=== PATIENT | female | born 1980 | race Asian ===

== ENCOUNTER 2023-12-16 20:18 | Emergency (ER) | payer SELFPAY ==
[~2023-12-16] VITALS: Ht 167.6 cm; Wt 77.0 kg
[2023-12-16 20:44] VITALS: O2SAT 99
[2023-12-16] MEDS: HYDROCODONE/ACETAMINOPHEN 10/325MG TABLET PO ONE (21:55)
[2023-12-16] MEDS: KETOROLAC 60MG/2ML VIAL IM ONE (22:24)
[2023-12-16] MEDS: KETOROLAC 30MG/ML VIAL IV ONE (22:44)
[2023-12-16] MEDS ORDERED: LIDOCAINE HCL 1% 20ML VIAL (Pyxis) INJ INFIL ONE (22:45)
[2023-12-16] MEDS: HYDROMORPHONE HCL/PF 2MG/ML CPJ IV ONE (23:19)
[2023-12-16] MEDS: LIDOCAINE HCL 1% 20ML VIAL (Pyxis) INJ INFIL NR (23:51)
[2023-12-17] MEDS ORDERED: IBUP-2029 MT (00:12)
[2023-12-17] MEDS: IBUPROFEN 600MG TABLET PO ONE (00:47)
[2023-12-17 00:50] VITALS: BP 119/71; PULSE 85; RESP 18; TEMP 97.6
== END 2023-12-17 00:51 | disposition home or self-care (01) ==
LOC: ER 20:18
DX: S52.511A Displaced fracture of right radial styloid process, initial encounter for closed fracture (principal); Z98.890 Other specified postprocedural states; W18.39XA Other fall on same level, initial encounter; Y93.89 Activity, other specified; Y92.89 Other specified places as the place of occurrence of the external cause; Y99.8 Other external cause status
CPT/HCPCS: 81025; 73100; 73110; 73130; 25605; 96374; 96375; 99152; 99285; J1885 ×2; J3490; J1170; Z7610 ×2; A4565